=== PATIENT | male | born 1990 | race Caucasian/White ===

== ENCOUNTER 2018-01-20 13:13 | Emergency (ER) | payer OTHER ==
[2018-01-20 13:18] VITALS: RESP 16; O2SAT 98
--- NOTE | 2018-01-20 13:38 | EDPHY ---
HPI/HX/ROS/PE/MDM Narrative: CHIEF COMPLAINT: Feeling faint, right lower quadrant pain HISTORY OF PRESENT ILLNESS: The patient is a 27 y/o male complaining of right lower quadrant, almost inguinal canal pain for the last week and two episodes of feeling faint. He describes the pain as a dull ache in the right lower quadrant, just superior to the inguinal canal which occasionally radiates extending into the groin. The pain is transient and dull with episodes of sharp pain. He has some associated nausea. Friday, he felt faint, like he would pass out and was sweaty. He describes having discomfort at that time associated with nausea. He slept for a few hours and felt better. Today, while sitting at his desk he again had increased pain, nausea, and felt lightheaded. He denies feeling vertiginous or spinning, denies palpitations, denies tachycardia. Patient denies vomiting, dysuria, polyuria, penile discharge or new sexual partners. Denies any testicular pain or swelling. He denies history of abdominal surgery, hernia, kidney stones, or any other associated conditions. He denies illicit drug use. No fever, chills, chest pain, shortness of breath, palpitations, vomiting, diarrhea, urinary complaints, headache, lightheadedness. REVIEW OF SYSTEMS: Aside from elements discussed in the HPI, a comprehensive 10-point review of systems was reviewed and is negative. PAST MEDICAL HISTORY: Reports a prior history of vasovagal syncope. SOCIAL HISTORY: Employed, lives in [place], non-smoker VITAL SIGNS: Reviewed by me GENERAL: Well-developed, well-nourished, resting comfortably in no respiratory distress. HEENT: Atraumatic. Eyes: No icterus, no injection. Mouth: moist mucous membranes. No erythema or lesions. Neck: supple with no adenopathy. LUNGS: Clear to auscultation bilaterally, no wheezes, rhonchi or rales. CARDIAC: Slightly irregular, consistent with sinus a rhythm me a, Regular rate and rhythm, no rubs, murmurs or gallops. ABDOMEN: Tenderness to palpation in the very low right quadrant, supra inguinal region. No adenopathy palpated. No testicular tenderness or swelling. Soft, nondistended, bowel sounds normal. BACK: No CVA tenderness. EXTREMITIES: No trauma. No edema. Range of motion is normal throughout. NEURO: Alert and oriented, grossly nonfocal. SKIN: Warm and dry, no rash. PSYCHIATRIC: Normal mentation, no agitation. ED Course: The patient presents with pain in the lower right quadrant/ superior to the inguinal canal region, and two episodes of feeling faint, which sound vasovagal. He has associated nausea. Plan for UA, EKG, fluids, and blood work. 2:55 PM- His urinalysis has no blood. Plan for CT to evaluate the possibility of appendicitis and kidney stones. CT scan demonstrates a normal appendix, no evidence of a kidney stone, no inguinal masses, no significant constipation, no obvious inguinal hernia. On re-examination the patient reports the pain feels like it has moved much lower into the inguinal canal and just to the inguinal ring. There is no demonstrable hernia on my examination with the patient standing. We will refer the patient to General surgery for re-evaluation. Return precautions discussed. Patient's EKG is normal sinus rhythm and his troponin is negative. MDM: The differential diagnosis for the patient's abdominal pain was considered including but not limited to urinary tract infection, hernia, appendicitis, kidney stone, groin strain, testicular torsion. - Data Points Imaging Results: Imaging Impressions Abdomen CT 01/20/18 14:32 Impression: 1. Small hiatal hernia. 2. No CT evidence of appendicitis, abscess or bowel obstruction. Findings and recommendations discussed with Emergency Department physician, Trini Dexter MD at 1516 hour, 01/20/2018. Final report concurs with initial preliminary interpretation. Imaging: Discussed imaging studies w/ order caller Radiologist Laboratory Results: Laboratory Results 01/20/18 13:40 01/20/18 13:40 01/20/18 01/20/18 01/20/18 13:40 13:40 13:40 WBC 6.75 10^3/uL 10^3/uL (3.80-9.50) RBC 5.53 10^6/uL 10^6/uL (4.40-6.38) Hgb 17.6 g/dL H g/dL (13.7-17.5) Hct 50.0 % % (40.0-51.0) MCV 90.4 fL fL (81.5-99.8) MCH 31.8 pg pg (27.9-34.1) MCHC 35.2 g/dL g/dL (32.4-36.7) RDW 11.8 % % (11.5-15.2) Plt Count 190 10^3/uL 10^3/uL (150-400) MPV 10.8 fL fL (8.7-11.7) Neut % (Auto) 73.8 % % (39.3-74.2) Lymph % (Auto) 16.1 % % (15.0-45.0) [place] % (Auto) 7.6 % % (4.5-13.0) Eos % (Auto) 1.2 % % (0.6-7.6) Baso % (Auto) 0.9 % % (0.3-1.7) Nucleat RBC Rel Count 0.0 % % (0.0-0.2) Absolute Neuts (auto) 4.98 10^3/uL 10^3/uL (1.70-6.50) Absolute Lymphs (auto) 1.09 10^3/uL 10^3/uL (1.00-3.00) Absolute Monos (auto) 0.51 10^3/uL 10^3/uL (0.30-0.80) Absolute Eos (auto) 0.08 10^3/uL 10^3/uL (0.03-0.40) Absolute Basos (auto) 0.06 10^3/uL 10^3/uL (0.02-0.10) Absolute Nucleated RBC 0.00 10^3/uL 10^3/uL (0-0.01) Immature Gran % 0.4 % % (0.0-1.1) Immature Gran # 0.03 10^3/uL 10^3/uL (0.00-0.10) Sodium 138 mEq/L mEq/L (135-145) Potassium 3.6 mEq/L mEq/L (3.5-5.2) Chloride 100 mEq/L mEq/L (97-110) Carbon Dioxide 23 mEq/l mEq/l (22-31) Anion Gap 15 mEq/L mEq/L (8-16) BUN 9 mg/dL mg/dL (7-23) Creatinine 0.8 mg/dL mg/dL (0.7-1.3) Estimated GFR > 60 Glucose 147 mg/dL H mg/dL (70-100) Calcium 10.0 mg/dL mg/dL (8.5-10.4) Troponin I < 0.012 ng/mL ng/mL (0.000-0.034) Urine Color COLORLESS Urine Appearance CLEAR Urine pH 8.0 H (5.0-7.5) Ur Specific [place] 1.001 L (1.002-1.030) Urine Protein NEGATIVE (NEGATIVE) Urine Ketones NEGATIVE (NEGATIVE) Urine Blood NEGATIVE (NEGATIVE) Urine Nitrate NEGATIVE (NEGATIVE) Urine Bilirubin NEGATIVE (NEGATIVE) Urine Urobilinogen NEGATIVE EU EU (0.2-1.0) Ur Leukocyte Esterase NEGATIVE (NEGATIVE) Urine RBC NONE SEEN /hpf /hpf (0-3) Urine WBC NONE SEEN /hpf /hpf (0-3) Ur Epithelial Cells NONE SEEN /lpf /lpf (NONE-1+) Urine Glucose NEGATIVE (NEGATIVE) Medications Given: Discontinued Medications Sodium Chloride (Ns) 1,000 mls @ 0 mls/hr IV ONCE ONE PRN Reason: Wide Open Stop: 01/20/18 13:51 Last Admin: 01/20/18 13:50 Dose: 1,000 mls Sodium Chloride (Ns) 1,000 mls @ 0 mls/hr IV ONCE ONE; Wide Open PRN Reason: Protocol Stop: 01/20/18 14:04 Last Admin: 01/20/18 14:03 Dose: Not Given General Time Seen by Provider: 01/20/18 13:23 Initial Vital Signs: Initial Vital Signs Temperature (C) 36.8 C 01/20/18 13:16 Heart Rate 86 01/20/18 13:16 Respiratory Rate 16 01/20/18 13:16 Blood Pressure 149/105 H 01/20/18 13:16 O2 Sat (%) 98 01/20/18 13:16 O2 Delivery Mode Room Air Allergies/Adverse Reactions: No Known Allergies Allergy (Unverified 01/20/18 13:16) Home Medications: Medication Instructions Recorded NK [No Known Home Meds] 01/20/18 Departure - Departure Disposition: Home, Routine, Self-Care Clinical Impression: Right groin pain, Vasovagal near syncope Condition: Good Instructions: Inguinal Hernia (ED), Groin Strain (ED), Groin Pain (ED), Syncope (ED) Additional Instructions: There is no clear cause of your abdominal discomfort identified in the emergency department. You do not have appendicitis or evidence of a kidney stone. Your pain may be related to a groin strain, or a hernia. I believe your feeling lightheaded is related to vasovagal type episode. Please drink plenty of fluid. Get plenty of rest. Use Tylenol or ibuprofen as needed for discomfort. Please follow up with primary care physician as directed as well as follow up with General surgery for further evaluation the possibility of a hernia. Return to the emergency department or seek care urgently if he develops significant groin pain, swelling of her testicle, fever, blood in the urine, ongoing lightheadedness and near fainting, have a fainting episode, or develop other concerns. Referrals: Ya Meza MD [Medical Doctor] - As per Instructions (Dr. Meza is a general surgeon. Please follow up with her if you have ongoing groin pain.) Kristen Johns MD [Medical Doctor] - As per Instructions (Dr. Kristen Johns is a internal medicine doctor. Please follow up with her to establish primary care.) Report Scribed for: Trini Dexter Report Scribed by: Renetta Weaver Date of Report: 01/20/18 Time of Report: 15:03 Physician Review and Approval Statement: Portions of this note were transcribed by a center medical specialist. I personally performed a history, physical exam, medical decision making, and confirmed accuracy of information the transcribed note.
[2018-01-20] MEDS ORDERED: NS 1,000 ML IV ONE ×2 (13:50→14:03)
--- NOTE | 2018-01-20 13:59 | CPEKG ---
Heart Rate: 72 RR Interval: 833 P-R Interval: 120 QRSD Interval: 96 QT Interval: 384 QTC Interval: 421 P [place]: 28 QRS [place]: 88 T Wave [place]: 62 EKG Severity - NORMAL ECG - EKG Impression: SINUS RHYTHM Electronically Signed By: Juan C Sellers 22-Jan-2018 07:19:27
[2018-01-20 14:13] LABS: PLATELET COUNT 190 10^3/uL (150-400)
[2018-01-20] MEDS ORDERED: IOPAMIDOL (ISOVUE-300) 100 ML BTL ONE (14:41)
[2018-01-20] MEDS ORDERED: KETOROLAC 15 MG/1 ML SDV IVP ONE (15:52)
[2018-01-20 16:35] VITALS: BP 142/81; PULSE 69; TEMP 98.4
== END 2018-01-20 16:26 | disposition home or self-care (01) ==
DX: R10.30 Lower abdominal pain, unspecified (principal); R55 Syncope and collapse
CPT/HCPCS: 96374; J1885; Q9967

== ENCOUNTER → 2018-08-25 | Outpatient (CLI) | payer OTHER | LOC: BMCIMAGING 07:11 | PROVIDERS: ATTEND Physician Assistant | DX: M79.89 Other specified soft tissue disorders (principal) ==